=== PATIENT | female | born 1955 | race Caucasian/White ===

== ENCOUNTER 2019-05-17 14:45 | Emergency (ER) | payer MEDICARE, BC, MEDICAID ==
[~2019-05-17] VITALS: Ht 170.2 cm; Wt 45.8 kg
--- NOTE | 2019-05-17 16:13 | NUR ---
Patient discharged to home in stable conditon. Written and verbal after care instructions given. Patient verbalizes understanding of instructions.
== END 2019-05-17 16:13 | disposition home or self-care (01) ==
LOC: ER 14:45
DX: M25.551 Pain in right hip (principal); K21.9 Gastro-esophageal reflux disease without esophagitis; Z88.0 Allergy status to penicillin; Z88.2 Allergy status to sulfonamides; Z88.8 Allergy status to other drugs, medicaments and biological substances
CPT/HCPCS: 73502; A4663